=== PATIENT | male | born 1960 | race Caucasian/White ===

== ENCOUNTER 2024-04-17 09:13 | Outpatient (CLI) | payer OTHER, SELFPAY ==
--- NOTE | ~2024-04-17 | MR_ITS ---
MRI of the cervical spine Clinical History: Neck pain Technique: Axial T2-weighted and gradient images, and sagittal T1-weighted, T2-weighted, and STIR meet ges were acquired. Findings: There is anterior fusion from C4 through C7, with anterior plates, screws, and interbody fu rebekah devices. There is severe degenerative disc narrowing at C3-C4, probable minimal grade 1 retrolis thesis of C3 over C4. No acute fracture seen. No suspicious bone marrow signal abnormality seen. At C2-C3, there is no disc bulge or herniation. No spinal canal stenosis, cord compression, or neural foraminal narrowing. At C3-C4, there is mild disc osteophyte complex, with mild facet arthropathy. There is severe bilater al neural foraminal narrowing. There is moderate canal stenosis with mild flattening of the cord. At C4-C5, there is mild bilateral neural foraminal narrowing with bilateral facet hypertrophy. No lashae tral canal stenosis or cord compression. At C5-C6, there is bilateral neural foraminal narrowing with facet hypertrophy, right worse than left . No canal stenosis or cord compression. At C6-C7, there is bilateral neural foraminal narrowing with bilateral facet arthropathy. No central canal stenosis or cord compression. No abnormal signal seen in the spinal cord. Paravertebral soft tissues are unremarkable. Impression: Anterior fusion from C4 through C7, as above. Advanced degenerative spondylosis at C3-C4, with canal stenosis and mild flattening of the cord, as d etailed above. Multilevel neural foraminal narrowing the cervical spine, as above. Reviewed, dictated and finalized at [facility]. NTIFIC ILLUSTRATOR Impression: Anterior fusion from C4 through C7, as above. Advanced degenerative spondylosis at C3-C4, with canal stenosis and mild flatte arely of the cord, as detailed above. Multilevel neural foraminal narrowing the cervical spine, as above.
--- NOTE | ~2024-04-17 | MR_ITS ---
MRI of the lumbar spine Clinical History: Lumbar stenosis Technique: Axial T2-weighted images, and sagittal T1-weighted, T2-weighted, and T2 fat-sat images wer e acquired. Findings: There are bilateral L5 pars interarticularis defects, with 12 mm anterolisthesis of L5 over S1. No other fracture or subluxation seen. No suspicious bone marrow signal abnormality seen. At L1-L2, there is mild degenerative disc narrowing. There is moderate to advanced facet arthropathy. No central canal stenosis. There is mild to moderate bilateral neural foraminal narrowing. At L2-L3, there is no disc bulge or herniation. There is severe facet arthropathy. No central canal s tenosis or neural foraminal narrowing. At L3-L4, there is disc bulge and severe facet arthropathy, resulting in severe spinal canal stenosis /thecal sac compression. There is severe left neural foraminal, right, and moderate right neural fora angi comprise. At L4-L5, there is probable tiny annular fissure with moderate facet arthropathy. No central canal st enosis and there is moderate to advanced bilateral neural foraminal narrowing, left worse than right. At L5-S1, there is disc bulge/uncovering with severe facet arthropathy. No central canal stenosis. Th ere is severe bilateral neural foraminal comprise. Paravertebral soft tissues are unremarkable. Impression: Bilateral L5 pars interarticularis defects, with 12 mm anterolisthesis of L5 over S1. Severe degenerative spondylosis at L3-L4, as above. Severe bilateral neural foraminal narrowing at L5-S1, as above. Additional mild to moderate degenerative changes, as above. Reviewed, dictated and finalized at [facility]. ALER HELPER Impression: Bilateral L5 pars interarticularis defects, with 12 mm anterolisthesis of L5 ov er S1. Severe degenerative spondylosis at L3-L4, as above. Severe bilateral neural foraminal narrowing at L5-S1, as above. Additional mild to moderate degenerative changes, as above.
== END 2024-04-17 09:14 | disposition home or self-care (01) ==
PROVIDERS: PCP Internal Medicine; Visit Provider Neurological Surgery
DX: M48.062 Spinal stenosis, lumbar region with neurogenic claudication (principal); M47.896 Other spondylosis, lumbar region; M47.892 Other spondylosis, cervical region; M48.02 Spinal stenosis, cervical region; Z98.1 Arthrodesis status
CPT/HCPCS: 72141; 72148